=== PATIENT | female | born 1945 | race African-American/Black ===

== ENCOUNTER → 2016-07-15 | Day surgery (SDC) | payer MEDICARE, OTHER ==
[~2016-07-15] MED LIST: DIOVAN80 M1 PO; PROAIR HFA8.5 GM INH; SUMATRIPTAN SU100 MG PO; SYNTHROID112 MCG PO; TOPAMAX200 MG PO
--- NOTE | ~2016-07-15 | OR ---
Unit #: [id number] #: [id number] Patient: SANTO BERNAL [id number] [address] [place], [place] [address] [id number] O MR#: [id number] NAME: SANTO BERNAL. ROOM: Date of Procedure: 07/15/2016 Admission Date: 07/15/2016 Surgeon: Mango Sherman M.D. : 1945 Attending Physician: Mango Sherman M.D. Referring Physician: Mango Sherman M.D. Primary Care Physician: Leanne Foote M.D. OPERATIVE REPORT PREOPERATIVE DIAGNOSIS Change in bowel habits. POSTOPERATIVE DIAGNOSIS Change in bowel habits. PROCEDURE PERFORMED Colonoscopy to cecum. ANESTHESIA Monitored anesthesia care. 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 SPECIMENS None. COMPLICATIONS None apparent. CONDITION The patient tolerated the procedure well. INDICATIONS FOR PROCEDURE The patient is a 70-year-old white female, who presents at this time for evaluation of change in bowel habits. She has developed alternating diarrhea and constipation. Her last colonoscopy was 7 years ago. She presents at this time for evaluation by colonoscopy. DESCRIPTION OF PROCEDURE After obtaining informed consent, the patient was brought to the endoscopy suite and after adequate monitored anesthesia care, had the colonoscope placed through the anus and slowly advanced to the level of the cecum without difficulty with the lumen always in view. The cecum was normal as was the ileocecal valve. There was scattered hamilton-diverticular disease throughout the colon. It was not very numerous in any one area, though was throughout the right and left and transverse colon. Other than this, there was no abnormality seen in the ascending colon, hepatic flexure, transverse colon, splenic flexure, descending colon, sigmoid colon, or rectum. On retroflexing in the rectum to the anorectal junction, there Unit #: [id number] #: [id number] Patient: SANTO BERNAL was no obvious abnormality seen. The scope was removed without difficulty. On digital examination, there was good sphincter tone. No masses palpable. The patient went from the endoscopy suite to the recovery area in stable condition. RECOMMENDATIONS High-fiber diet, lots of liquids, tucks or wipes p.r.n. Diverticular sheet given. Follow up in our office as needed. Dictated by... Rudolph Barclay/zulma TD: 07/16/2016 01:43 JOB #: [id number] CC: [facility] OPERATIVE REPORT Page 1 of 1 X Mango Sherman MD X PROCEDURE OPERATIVE NOTE
== END | disposition home or self-care (01) ==
LOC: COPS 05:42
DX: R19.4 Change in bowel habit (principal); K57.30 Diverticulosis of large intestine without perforation or abscess without bleeding; I12.9 Hypertensive chronic kidney disease with stage 1 through stage 4 chronic kidney disease, or unspecified chronic kidney disease; N18.9 Chronic kidney disease, unspecified; J45.909 Unspecified asthma, uncomplicated; G43.909 Migraine, unspecified, not intractable, without status migrainosus; M06.9 Rheumatoid arthritis, unspecified; F41.9 Anxiety disorder, unspecified; Z79.899 Other long term (current) drug therapy; Z90.710 Acquired absence of both cervix and uterus; Z98.41 Cataract extraction status, right eye; Z98.42 Cataract extraction status, left eye; E89.0 Postprocedural hypothyroidism
CPT/HCPCS: 82947